=== PATIENT | male | born 1990 | race Caucasian/White ===

== ENCOUNTER 2017-12-04 16:18 | Emergency (ER) | payer OTHER ==
[2017-12-04] MEDS: KETOROLAC 60 MG INJ IM (19:55)
[2017-12-04] MEDS: morphine 4 MG/ML VIAL IM (20:05)
== END 2017-12-04 20:15 | disposition home or self-care (01) ==
LOC: FTE 16:18
DX: K80.50 Calculus of bile duct without cholangitis or cholecystitis without obstruction (principal)
CPT/HCPCS: 76705; 96372; 99285-25

== ENCOUNTER 2017-12-06 05:58 | Inpatient (IN) | payer OTHER ==
[2017-12-06] MEDS: PIPER-TAZO 3.375 GM IV (PMX) 100 ML IVPB ×3 (07:23→21:38)
[2017-12-06] MEDS: SODIUM CHLORIDE 0.9% 1L BAG IV* (07:23)
[2017-12-06] MEDS: HYDROmorphONE 1 MG/ML SYG IV (07:24)
[2017-12-06] MEDS: ONDANSETRON 4 MG INJ IV ×2 (07:24→10:53)
[2017-12-06 07:26] LABS: ADD MAN DIFF? NO
[2017-12-06 07:28] LABS: BASOPHIL # 0.1 10^3/ul (0.0-0.1); BASOPHILS % 0.5 % (0.0-2.0); EOSINOPHILS # 0.2 10^3/ul (0.0-0.5); EOSINOPHILS % 1.6 % (0.0-7.0); HEMATOCRIT 43.6 % (42.0-52.0); HEMOGLOBIN 14.8 g/dl (14.0-18.0); LYMPHOCYTES # 1.8 10^3/ul (0.8-2.9); LYMPHOCYTES % 16.6 % (15.0-51.0); MEAN CORPUSCULAR HEMOGLOBIN 28.1 pg (29.0-33.0); MEAN CORPUSCULAR HGB CONC 33.9 g/dl (32.0-37.0); MEAN CORPUSCULAR VOLUME 82.7 fl (82.0-101.0); MEAN PLATELET VOLUME 9.5 fl (7.4-10.4); MONOCYTE # 1.2 10^3/ul (0.3-0.9); MONOCYTES % 10.7 % (0.0-11.0); NEUTROPHIL # 7.8 10^3/ul (1.6-7.5); NEUTROPHILS % 70.3 % (39.0-77.0); PLATELET COUNT 355 10^3/UL (140-415); RED BLOOD COUNT 5.27 10^6/ul (4.70-6.10); RED CELL DISTRIBUTION WIDTH 13.6 % (11.5-14.5)
[2017-12-06 07:28] LABS: WHITE BLOOD COUNT 11.1 10^3/ul (4.8-10.8)
[2017-12-06 07:46] LABS: ALANINE AMINOTRANSFERASE 198 IU/L (13-69); ALBUMIN 4.2 g/dl (3.3-4.9); ALBUMIN/GLOBULIN RATIO 1.07; ALKALINE PHOSPHATASE 129 IU/L (42-121); ANION GAP 15 (8-16); ASPARTATE AMINO TRANSFERASE 108 IU/L (15-46); BILIRUBIN,INDIRECT 1.1 mg/dl (0-1.1); BILIRUBIN,TOTAL 1.1 mg/dl (0.2-1.3); BLOOD UREA NITROGEN 17 mg/dl (7-20); CALCIUM 9.6 mg/dl (8.4-10.2); CARBON DIOXIDE 27 mmol/L (21-31); CHLORIDE 102 mmol/L (97-110); CREATININE 0.84 mg/dl (0.61-1.24); GLUCOSE 110 mg/dl (70-220); LIPASE 33 U/L (23-300); POTASSIUM 3.9 mmol/L (3.5-5.1); SODIUM 140 mmol/L (135-144); TOTAL PROTEIN 8.1 g/dl (6.1-8.1)
[2017-12-06 07:47] LABS: LACTIC ACID 1.1 mmol/L (0.5-2.0)
[2017-12-06 07:47] LABS: INR 1.05; PROTIME 13.8 Sec (11.9-14.9); PT RATIO 1.1
[2017-12-06 07:48] LABS: PARTIAL THROMBOPLASTIN TIME 31.1 Sec (25.0-35.0)
[2017-12-06] MEDS: ACETAMINOPHEN 325 MG TAB PO (07:59)
[2017-12-06] MEDS ORDERED: ONDANSETRON 4 MG INJ IV (09:00)
[2017-12-06] MEDS ORDERED: ACETAMINOPHEN 325 MG TAB PO ×2 (09:00→09:30)
[2017-12-06] MEDS: DOCUSATE SODIUM 100 MG CAP PO ×2 (09:30→21:17)
[2017-12-06] MEDS: FAMOTIDINE 20 MG TAB PO ×2 (09:30→21:17)
[2017-12-06 09:52] LABS: LACTIC ACID 1.3 mmol/L (0.5-2.0)
[2017-12-06] MEDS: DEXTROSE 5%-0.45% NACL 1,000 ML IV ×2 (10:10→21:16)
[2017-12-06] MEDS: morphine 2 MG INJ IV ×2 (10:53→21:17)
[2017-12-06 11:49] LABS: LACTIC ACID 1.1 mmol/L (0.5-2.0)
[2017-12-07] MEDS: DEXTROSE 5%-0.45% NACL 1,000 ML IV ×4 (01:12→18:25)
[2017-12-07] MEDS: PIPER-TAZO 3.375 GM IV (PMX) 100 ML IVPB ×3 (05:16→21:37)
[2017-12-07 05:17] LABS: ADD MAN DIFF? NO
[2017-12-07 05:32] LABS: WHITE BLOOD COUNT 9.3 10^3/ul (4.8-10.8)
[2017-12-07 05:32] LABS: BASOPHILS % 0.4 % (0.0-2.0); EOSINOPHILS # 0.4 10^3/ul (0.0-0.5); EOSINOPHILS % 4.2 % (0.0-7.0); HEMATOCRIT 39.1 % (42.0-52.0); HEMOGLOBIN 13.2 g/dl (14.0-18.0); LYMPHOCYTES # 1.6 10^3/ul (0.8-2.9); LYMPHOCYTES % 17.4 % (15.0-51.0); MEAN CORPUSCULAR HEMOGLOBIN 28.3 pg (29.0-33.0); MEAN CORPUSCULAR HGB CONC 33.8 g/dl (32.0-37.0); MEAN CORPUSCULAR VOLUME 83.9 fl (82.0-101.0); MEAN PLATELET VOLUME 9.7 fl (7.4-10.4); MONOCYTE # 0.9 10^3/ul (0.3-0.9); NEUTROPHIL # 6.3 10^3/ul (1.6-7.5); NEUTROPHILS % 67.7 % (39.0-77.0); PLATELET COUNT 316 10^3/UL (140-415); RED BLOOD COUNT 4.66 10^6/ul (4.70-6.10); RED CELL DISTRIBUTION WIDTH 13.4 % (11.5-14.5)
[2017-12-07 05:43] LABS: ALANINE AMINOTRANSFERASE 246 IU/L (13-69); ALBUMIN 3.7 g/dl (3.3-4.9); ALBUMIN/GLOBULIN RATIO 1.19; ALKALINE PHOSPHATASE 169 IU/L (42-121); ANION GAP 12 (8-16); ASPARTATE AMINO TRANSFERASE 129 IU/L (15-46); BILIRUBIN,INDIRECT 1.3 mg/dl (0-1.1); BILIRUBIN,TOTAL 1.3 mg/dl (0.2-1.3); BLOOD UREA NITROGEN 10 mg/dl (7-20); CALCIUM 8.6 mg/dl (8.4-10.2); CARBON DIOXIDE 29 mmol/L (21-31); CHLORIDE 104 mmol/L (97-110); CREATININE 0.89 mg/dl (0.61-1.24); GLUCOSE 110 mg/dl (70-220); POTASSIUM 3.5 mmol/L (3.5-5.1); SODIUM 141 mmol/L (135-144); TOTAL PROTEIN 6.8 g/dl (6.1-8.1)
[2017-12-07] MEDS ORDERED: ROPIVACAINE 0.5 % 30 ML VIAL ×2 (08:20→09:10)
[2017-12-07] MEDS ORDERED: MEPERIDINE 25 MG INJ IV (08:30)
[2017-12-07] MEDS ORDERED: LABETALOL HCL 20MG INJ IV (08:30)
[2017-12-07] MEDS ORDERED: ONDANSETRON 4 MG INJ IV (08:30)
[2017-12-07] MEDS ORDERED: HYDROmorphONE (0.2 MG/ML) 10ML SYG IV ×3 (08:30)
[2017-12-07] MEDS ORDERED: OXYCODONE/ACETAMINOPHEN (5/325) TAB PO (08:30)
[2017-12-07] MEDS ORDERED: DIPHENHYDRAMINE 50 MG INJ IV (08:30)
[2017-12-07] MEDS ORDERED: hydrALAzine 20 MG INJ IV (08:30)
[2017-12-07] MEDS ORDERED: FENTAnyl 50 MCG/ML VIAL IV ×3 (08:30)
[2017-12-07] MEDS ORDERED: METOCLOPRAMIDE 10 MG INJ IV (08:30)
[2017-12-07] MEDS: DOCUSATE SODIUM 100 MG CAP PO ×2 (09:00→20:24)
[2017-12-07] MEDS: FAMOTIDINE 20 MG TAB PO ×2 (09:00→20:24)
[2017-12-07] MEDS ORDERED: ROCURONIUM 50 MG INJ (09:10)
[2017-12-07] MEDS ORDERED: PROPOFOL 20 ML (09:10)
[2017-12-07] MEDS ORDERED: CEFAZOLIN 1 GM INJ (09:10)
[2017-12-07] MEDS ORDERED: MIDAZOLAM 1 MG/ML 2 ML INJ (09:10)
[2017-12-07] MEDS ORDERED: FENTAnyl 50 MCG/ML VIAL (09:10)
[2017-12-07] MEDS: BUPIVACAINE 0.25% (MPF) 30 ML INJ (09:57)
[2017-12-07] MEDS: LIDOCAINE 1%/EPI 30 ML INJ (09:58)
[2017-12-07] MEDS ORDERED: ACETAMINOPHEN 1000MG/100ML IV 100 ML (10:26)
[2017-12-07] MEDS ORDERED: METOCLOPRAMIDE 10 MG INJ (10:26)
[2017-12-07] MEDS ORDERED: KETOROLAC 30 MG INJ (10:26)
[2017-12-07] MEDS ORDERED: DEXAMETHASONE 4 MG/ML 1 ML INJ (10:26)
[2017-12-07] MEDS ORDERED: SUGAMMADEX SODIUM 200 MG/2 ML VIAL IV (10:26)
[2017-12-07] MEDS ORDERED: ONDANSETRON 4 MG INJ (10:26)
[2017-12-07] MEDS ORDERED: HYDROmorphONE 0.5 MG/0.5 ML SYG IV (11:00)
[2017-12-07] MEDS: morphine 2 MG INJ IV ×2 (15:08→20:25)
[2017-12-07] MEDS: HYDROCODONE/APAP (5/325) TAB PO (23:53)
[2017-12-08] MEDS: DEXTROSE 5%-0.45% NACL 1,000 ML IV ×3 (02:35→17:30)
[2017-12-08] MEDS: PIPER-TAZO 3.375 GM IV (PMX) 100 ML IVPB ×2 (05:36→13:30)
[2017-12-08] MEDS: HYDROCODONE/APAP (5/325) TAB PO ×3 (05:43→15:26)
[2017-12-08 05:46] LABS: ADD MAN DIFF? NO
[2017-12-08 06:03] LABS: BASOPHILS % 0.3 % (0.0-2.0); EOSINOPHILS # 0.1 10^3/ul (0.0-0.5); EOSINOPHILS % 0.6 % (0.0-7.0); HEMATOCRIT 36.9 % (42.0-52.0); LYMPHOCYTES # 2.1 10^3/ul (0.8-2.9); LYMPHOCYTES % 27.4 % (15.0-51.0); MEAN CORPUSCULAR HEMOGLOBIN 27.8 pg (29.0-33.0); MEAN CORPUSCULAR HGB CONC 32.5 g/dl (32.0-37.0); MEAN CORPUSCULAR VOLUME 85.4 fl (82.0-101.0); MONOCYTE # 0.9 10^3/ul (0.3-0.9); MONOCYTES % 10.9 % (0.0-11.0); NEUTROPHIL # 4.7 10^3/ul (1.6-7.5); NEUTROPHILS % 60.4 % (39.0-77.0); PLATELET COUNT 340 10^3/UL (140-415); RED BLOOD COUNT 4.32 10^6/ul (4.70-6.10); RED CELL DISTRIBUTION WIDTH 13.4 % (11.5-14.5)
[2017-12-08 06:03] LABS: WHITE BLOOD COUNT 7.8 10^3/ul (4.8-10.8)
[2017-12-08 06:14] LABS: ALANINE AMINOTRANSFERASE 243 IU/L (13-69); ALBUMIN 3.3 g/dl (3.3-4.9); ALBUMIN/GLOBULIN RATIO 1.03; ALKALINE PHOSPHATASE 179 IU/L (42-121); ANION GAP 9 (8-16); ASPARTATE AMINO TRANSFERASE 116 IU/L (15-46); BILIRUBIN,INDIRECT 0.7 mg/dl (0-1.1); BILIRUBIN,TOTAL 0.7 mg/dl (0.2-1.3); BLOOD UREA NITROGEN 9 mg/dl (7-20); CALCIUM 8.6 mg/dl (8.4-10.2); CARBON DIOXIDE 31 mmol/L (21-31); CHLORIDE 105 mmol/L (97-110); CREATININE 0.81 mg/dl (0.61-1.24); GLUCOSE 127 mg/dl (70-220); SODIUM 141 mmol/L (135-144); TOTAL PROTEIN 6.5 g/dl (6.1-8.1)
[2017-12-08] MEDS: INFLUENZA VIRUS VACCINE 0.5 ML (DISPENSING) IM* (09:00)
[2017-12-08] MEDS: ONDANSETRON 4 MG INJ IV (09:05)
[2017-12-08] MEDS: DOCUSATE SODIUM 100 MG CAP PO (09:05)
[2017-12-08] MEDS: FAMOTIDINE 20 MG TAB PO (09:14)
== END 2017-12-08 18:40 | disposition home health service (06) | DRG 419 ==
LOC: E/R 05:58 → MS1 08:42
PROC: 0FT44ZZ Resection of Gallbladder, Percutaneous Endoscopic Approach (ICD-10-PCS; principal; 2017-12-07 09:00)
PROC: 0FB04ZX Excision of Liver, Percutaneous Endoscopic Approach, Diagnostic (ICD-10-PCS; 2017-12-07 09:00)
DX: K80.00 Calculus of gallbladder with acute cholecystitis without obstruction (principal); R16.0 Hepatomegaly, not elsewhere classified; E66.9 Obesity, unspecified; Z68.29 Body mass index [BMI] 29.0-29.9, adult; E80.6 Other disorders of bilirubin metabolism
CPT/HCPCS: 36415; 71045; 74181; 76705; 80053; 83605; 83690; 83735; 85025; 85610; 85730; 87040; 88304; 88307; 88313; 93005; 96374; 96375; 99285-25